=== PATIENT | male | born 1985 | race Two or more races ===

== ENCOUNTER 2024-11-23 12:48 | Emergency (ER) | payer MEDICARE, SELFPAY ==
[2024-11-23 13:21] VITALS: BP 152/65; PULSE 81; TEMP 36.7; O2SAT 98; BMI 35.8
--- NOTE | 2024-11-23 14:40 | ED_ITS ---
HPI - URI/Sore Throat General Chief Complaint: Upper Respiratory Infection Stated Complaint: URTI COMPLAINTS Time Seen by Provider: 11/23/24 14:23 Source: patient History of Present Illness HPI Narrative: Patient is a 39-year-old male who presents to the emergency department for a 1 week history of cough and congestion. He denies fevers, vomiting or diarrhea. No sick contacts in the home. He states he quit smoking 5 years ago. He states that he was physically unable to do his job yesterday and states that he did not think he could go to work today so he presented to the ER for treatment and a work note. He reports occasional green sputum with coughing. No hemoptysis. No medications prior to arrival Related Data Previous Rx's ?Medication ?Instructions ?Recorded dxfuqwvhlsqqteg-kxqcyyhnfjmcwik-QD 10 ml PO Q6H PRN cold symptoms 11/23/24 2 mg-30 mg-10 mg/5 mL oral syrup #200 mL (Bromfed DM) cefdinir 300 mg capsule 300 mg PO BID 10 days #20 caps 11/23/24 Allergies Allergy/AdvReac Type Severity Reaction Status Date / Time No Known Drug Allergies Allergy Verified 11/23/24 13:25 Review of Systems ROS Constitutional Denies: fever or chills Ears, nose, mouth, and throat Reports: nasal congestion; Denies: throat pain Cardiovascular Denies: chest pain Respiratory Reports: cough; Denies: shortness of breath Gastrointestinal Denies: nausea or vomiting Musculoskeletal Denies: back pain Integumentary/Breast Denies: rash Neurological Denies: numbness in extremities or weakness in extremities Hematologic/Lymphatic Denies: easy bruising or easy bleeding [facility] Social History Little interest or pleasure in doing things: not at all Feeling down, depressed, or hopeless: not at all Exam Narrative Exam Narrative: Gen.: Awake, alert, in no distress Head: Normocephalic, atraumatic ENT: Moist mucous membranes, bilateral TMs clear, no pharyngeal erythema Respiratory: No respiratory distress, lungs clear bilaterally Cardio: Regular rate and rhythm Extremities: Moves extremities equally Psych: Normal mood and affect Neuro: No focal neuro deficit Skin: Warm, dry, intact Constitutional Vital Signs, click to edit/add: Last Vital Signs Temp 98.0 F 11/23/24 13:21 Pulse 81 11/23/24 13:21 Resp 16 11/23/24 13:21 BP 152/65 H 11/23/24 13:21 Pulse Ox 98 11/23/24 13:21 O2 Del Method Room Air 11/23/24 13:21 Course Vital Signs Vital signs: Vital Signs Temperature 98.0 F 11/23/24 13:21 Pulse Rate 81 11/23/24 13:21 Respiratory Rate 16 11/23/24 13:21 Blood Pressure 152/65 H 11/23/24 13:21 Pulse Oximetry 98 11/23/24 13:21 Oxygen Delivery Method Room Air 11/23/24 13:21 Temperature 98.0 F 11/23/24 13:21 Pulse Rate 81 11/23/24 13:21 Respiratory Rate 16 11/23/24 13:21 Blood Pressure 152/65 H 11/23/24 13:21 Pulse Oximetry 98 11/23/24 13:21 Oxygen Delivery Method Room Air 11/23/24 13:21 MDM - URI/Sore Throat MDM Narrative Medical decision making narrative: Patient treated based on duration of symptoms. He has a history of diabetes so we will treat with antibiotics, cough medication. Follow-up with PCP and return to the ER if symptoms change or worsen. Decadron provided in the ER but we will avoid home steroids as the patient has a Dexcom in place and has a history of diabetes. SUPERVISED APC VISIT, PHYSICIAN ATTESTATION: Based on the medical record the care appears appropriate. ? Medical Records Attestation: I reviewed the patient's medical records. Discharge Plan Discharge Chief Complaint: Upper Respiratory Infection Clinical Impression: Upper respiratory infection Patient Disposition: Home, Self-Care Time of Disposition Decision: 14:38 Condition: Good Prescriptions / Home Meds: New [id number]-qoktndxgp-AH [Bromfed DM] 2-30-10 mg/5 mL syrup 10 ml PO Q6H PRN (Reason: cold symptoms) Qty: 200 0RF cefdinir 300 mg capsule 300 mg PO BID 10 Days Qty: 20 0RF Print Language: Faroese Instructions: Upper Respiratory Infection (ED) Referrals: Physician,Non-Staff, MD [Primary Care Provider] - 1 week
[2024-11-23] MEDS: DEXAMETHASONE SOD PHOS 10 MG/ML VIAL PO (14:49)
== END 2024-11-23 14:51 | disposition home or self-care (01) ==
PROVIDERS: Emergency Provider Emergency Medicine
DX: J06.9 Acute upper respiratory infection, unspecified (principal); Z87.891 Personal history of nicotine dependence; E11.9 Type 2 diabetes mellitus without complications
CPT/HCPCS: 99283; J1100